=== PATIENT | female | born 1985 | race Caucasian/White ===

== ENCOUNTER → 2023-02-11 | Outpatient (CLI) | payer MEDICAID, SELFPAY ==
[2023-02-14 10:08] LABS: Chlamydia By Nucleic Acid AMP Negative (Negative); Gonococcus By Nucleic Acid AMP Negative (Negative)
[2023-02-19 00:06] LABS: HPV APTIMA, High Risk Positive (Negative); HPV Genotype 16, Aptima Negative (Negative); HPV Genotype 18,45 Aptima Negative (Negative)
== END | disposition home or self-care (01) ==
PROVIDERS: Visit Provider Obstetrics & Gynecology
DX: O26.899 Other specified pregnancy related conditions, unspecified trimester (principal); N89.8 Other specified noninflammatory disorders of vagina; O34.60 Maternal care for abnormality of vagina, unspecified trimester; Z3A.00 Weeks of gestation of pregnancy not specified; O99.891 Other specified diseases and conditions complicating pregnancy
CPT/HCPCS: 87070; 87077; 87086; 87205; 87491; 87591; 87624; 88175; G0145

== ENCOUNTER → 2023-02-20 | Outpatient (CLI) | payer MEDICAID, SELFPAY ==
[2023-02-20 13:41] LABS: Absolute Neutrophil Count 4.1 X10^3/uL (2.0-7.7); Basophil# 0.02 X10^3/uL; Basophil% 0.3 % (0-1); Eosinophil# 0.02 X10^3/uL; Eosinophils% 0.3 % (0-5); Hemoglobin 13.3 g/dL (12.0-15.0); Lymphocyte % 22.6 % (19-41); Mean Corp Hgb Conc 33.3 g/dL (32-36); Mean Corpuscular Hgb 31.2 pg (27.0-32.0); Mean Corpuscular Volume 93.9 fL (81-99); Mean Platelet Vol. 10.4 fl (6.2-12.0); Monocyte# 0.33 X10^3/uL; Monocyte% 5.7 % (0-10); NRBC Flagged by Analyzer 0 % (0-5); Neutrophil # 4.06 X10^3/uL (2.7-7.7); Neutrophil % 70.9 % (47-70); Platelet Count 181 K/mm3 (150-450); RBC Distribution Width CV 12.5 % (11.6-14.6); RBC Distribution Width SD 42.9 fl (35.1-43.9); Red Blood Count 4.26 M/mm3 (4.2-5.4); White Blood Count 5.7 K/mm3 (4.4-11.0)
--- NOTE | 2023-02-20 13:43 | US_ITS ---
INDICATION: dating EXAMINATION: Ultrasound US OB Transvaginal TECHNIQUE: Transabdominal and transvaginal ultrasound was performed. Grayscale, spectral waveform, and color flow Doppler evaluation of the adnexa. COMPARISON: LMP: 11/25/2022. FINDINGS: Uterus is 12.8 cm length. Gestational sac identified within the endometrial canal. Mean sac diameter 4.95 cm corresponds to estimated gestational age 10 weeks 4 days. Normal sac shape. Single pole identified within the gestational sac. [place]-rump length 3.8 cm corresponds to 10 weeks 3 days. cardiac activity demonstrated at 169 bpm. Yolk sac was visualized. Early placenta is forming anterior. The ovaries appear unremarkable with vascular flow demonstrated. No free fluid identified. US/Transvaginal w/Preg US IMPRESSION: Single live intrauterine estimated gestational age 10 weeks 3 days based on crown-rump length. Electronically Signed: Shirley Castro MD at 7:56 EDT ,
[2023-02-20 14:03] LABS: Glucose Challenge Gest 1H 50g 111 mg/dL (70-140)
[2023-02-20 14:28] LABS: NATERA MAILED SPECIMEN
[2023-02-20 14:52] LABS: HIV - WCH Non-Reactive (Nonreactive); Hepatitis B Surface Antigen Non-Reactive (Nonreactive); Hepatitis C Antibody Non-Reactive (Nonreactive); Rubella IgG Reactive (Nonreactive); Syphilis Antibodies Non-reactive
== END | disposition home or self-care (01) ==
LOC: US 13:36
PROVIDERS: Referring Provider Obstetrics & Gynecology; Visit Provider Obstetrics & Gynecology
DX: O26.20 Pregnancy care for patient with recurrent pregnancy loss, unspecified trimester (principal); Z3A.00 Weeks of gestation of pregnancy not specified
CPT/HCPCS: 36415; 76817; 82950; 85025; 86703; 86762; 86780; 86803; 86850; 86900; 86901; 87340

== ENCOUNTER → 2023-03-21 | Outpatient (CLI) | payer MEDICAID, SELFPAY | END | disposition home or self-care (01) | LOC: US 17:34 | PROVIDERS: Referring Provider Obstetrics & Gynecology; Visit Provider Obstetrics & Gynecology | DX: R35.0 Frequency of micturition (principal) ==

== ENCOUNTER → 2023-03-24 | Outpatient (CLI) | payer MEDICAID, SELFPAY ==
--- NOTE | 2023-03-24 14:14 | US_ITS ---
STUDY: SECOND AND THIRD TRIMESTER OBSTETRICAL ULTRASOUND REASON FOR EXAM: Female, 37 years old cervical length LMP: December 06, 2022. TECHNIQUE: Transabdominal and Transvaginal TECHNICAL QUALITY: Adequate. PRIOR ULTRASOUND: Comparison is made with prior study February 20, 2023. FINDINGS: There is a single intrauterine fetus. The fetus is in a breech presentation. There is demonstrated cardiac activity with a heart rate of 143 bpm. There is a normal amniotic fluid volume. The placenta is anterior in location and is not low lying. There are Grade 0 placental changes. The cervix measures 4.1 cm in length. The adnexal regions are not visualized. IMPRESSION: Cervical length measures 4.1 cm. Electronically Signed: Darrin Chopra MD at 15:41 EDT , STUDY: FIRST TRIMESTER OBSTETRICAL ULTRASOUND REASON FOR EXAM: Female, 37 years old cervical length LMP: December 06, 2022. TECHNIQUE: Transvaginal TECHNICAL QUALITY: Adequate. PRIOR ULTRASOUND: None. FINDINGS: The cervical length measures 4.1 cm. US/Transvaginal w/Preg US IMPRESSION: Cervical length measures 4.1 cm. Electronically Signed: Darrin Chopra MD at 15:42 EDT ,
== END | disposition home or self-care (01) ==
PROVIDERS: Referring Provider Obstetrics & Gynecology; Visit Provider Obstetrics & Gynecology
DX: O34.32 Maternal care for cervical incompetence, second trimester (principal); Z3A.00 Weeks of gestation of pregnancy not specified
CPT/HCPCS: 76815; 76817; 87070; 87086; 87088; 87205

== ENCOUNTER → 2023-07-02 | Outpatient (CLI) | payer MEDICAID, SELFPAY ==
[2023-07-02 14:01] LABS: Absolute Neutrophil Count 5.1 X10^3/uL (2.0-7.7); Basophil# 0.02 X10^3/uL; Basophil% 0.3 % (0-1); Eosinophil# 0.04 X10^3/uL; Eosinophils% 0.6 % (0-5); Hematocrit 34.2 % (37-47); Hemoglobin 11.4 g/dL (12.0-15.0); Lymphocyte % 16.8 % (19-41); Mean Corp Hgb Conc 33.3 g/dL (32-36); Mean Corpuscular Hgb 30.2 pg (27.0-32.0); Mean Corpuscular Volume 90.5 fL (81-99); Monocyte# 0.23 X10^3/uL; Monocyte% 3.5 % (0-10); NRBC Flagged by Analyzer 0 % (0-5); Neutrophil # 5.13 X10^3/uL (2.7-7.7); Neutrophil % 78.3 % (47-70); Platelet Count 174 K/mm3 (150-450); RBC Distribution Width CV 12.4 % (11.6-14.6); RBC Distribution Width SD 40.3 fl (35.1-43.9); Red Blood Count 3.78 M/mm3 (4.2-5.4); White Blood Count 6.6 K/mm3 (4.4-11.0)
[2023-07-02 14:09] LABS: Glucose Challenge Gest 1H 50g 135 mg/dL (70-140)
[2023-07-02 15:03] LABS: HIV - WCH Non-Reactive (Nonreactive); Syphilis Antibodies Non-reactive
== END | disposition home or self-care (01) ==
PROVIDERS: Referring Provider Obstetrics & Gynecology; Visit Provider Obstetrics & Gynecology
DX: O26.20 Pregnancy care for patient with recurrent pregnancy loss, unspecified trimester (principal); Z3A.00 Weeks of gestation of pregnancy not specified
CPT/HCPCS: 36415; 82950; 85025; 86703; 86780

== ENCOUNTER → 2023-07-09 | Outpatient (CLI) | payer MEDICAID, SELFPAY ==
--- NOTE | 2023-07-09 15:44 | US_ITS ---
STUDY: Ultrasound OB limited 1 or more fetus Ultrasound OB transvaginal REASON FOR EXAM: Female, 37 years old growth PRIOR ULTRASOUND: March 24, 2023. , February 20, 2023 TECHNIQUE: Transabdominal and endovaginal OB ultrasound grayscale color flow and M-mode Doppler. Cerclage wire discovered during] transvaginal exam. FINDINGS: There is a single intrauterine fetus. The fetus is in a cephalic presentation. There is demonstrated cardiac activity with a heart rate of 131 bpm. There is a normal amniotic fluid volume. The largest amniotic fluid pocket measures 7.6 cm. The amniotic fluid index (TIARA) is 18.4 cm. The placenta is anterior, grade 2 without evidence of abruption or previa. The cervix measures 2.0 cm in length and is closed with cerclage wire in place . BIOMETRY: BPD: 7.8 cm: 31 weeks, 3 days HC: 29.2 cm: 32 weeks, 2 days AC: 27.8 cm: 31 weeks, 6 days FL: 5.9 cm: 30 weeks, 6 days Age by LMP: 30 weeks, 5 days. HUNTER by LMP: September 12, 2023. age by current US: 31 weeks, 5 days. HUNTER by current US: September 05 2023. Estimated weight: 1800 grams, +/- 270 grams, 68% percentile. IMPRESSION: Single live intrauterine with cephalic presentation and normal heart rate. Cerclage wire in place with 2 cm closed cervix and normal TIARA. growth by biometry is concordant with clinical dating. weight as above Electronically Signed: Skyler Hernandez MD at 9:57 EST , STUDY: Ultrasound OB limited 1 or more fetus Ultrasound OB transvaginal REASON FOR EXAM: Female, 37 years old growth PRIOR ULTRASOUND: March 24, 2023. , February 20, 2023 TECHNIQUE: Transabdominal and endovaginal OB ultrasound grayscale color flow and M-mode Doppler. Cerclage wire discovered during] transvaginal exam. FINDINGS: There is a single intrauterine fetus. The fetus is in a cephalic presentation. There is demonstrated cardiac activity with a heart rate of 131 bpm. There is a normal amniotic fluid volume. The largest amniotic fluid pocket measures 7.6 cm. The amniotic fluid index (TIARA) is 18.4 cm. The placenta is anterior, grade 2 without evidence of abruption or previa. The cervix measures 2.0 cm in length and is closed with cerclage wire in place . BIOMETRY: BPD: 7.8 cm: 31 weeks, 3 days HC: 29.2 cm: 32 weeks, 2 days AC: 27.8 cm: 31 weeks, 6 days FL: 5.9 cm: 30 weeks, 6 days Age by LMP: 30 weeks, 5 days. HUNTER by LMP: September 12, 2023. age by current US: 31 weeks, 5 days. HUNTER by current US: September 05 2023. Estimated weight: 1800 grams, +/- 270 grams, 68% percentile. US/OB Limited With Biometrics IMPRESSION: Single live intrauterine with cephalic presentation and normal heart rate. Cerclage wire in place with 2 cm closed cervix and normal TIARA. growth by biometry is concordant with clinical dating. weight as above Electronically Signed: Skyler Hernandez MD at 9:58 EST Reading Location ID and State: [facility] / [place] Tel , Service support ,
== END | disposition home or self-care (01) ==
PROVIDERS: Referring Provider Obstetrics & Gynecology; Visit Provider Obstetrics & Gynecology
DX: O09.529 Supervision of elderly multigravida, unspecified trimester (principal); Z3A.00 Weeks of gestation of pregnancy not specified
CPT/HCPCS: 36415; 76816; 76817; 82951; 82952

== ENCOUNTER → 2023-07-09 | Outpatient (CLI) | payer MEDICAID, SELFPAY ==
[2023-07-09 10:59] LABS: Glucose GTT-Gestation. Fasting 103 mg/dL (<105)
[2023-07-09 12:48] LABS: Glucose GTT-Gestational 2 Hr 150 mg/dL (<165)
[2023-07-09 12:50] LABS: Glucose GTT-Gestational 1 Hr 183 mg/dL (<190)
[2023-07-09 13:57] LABS: Glucose GTT-Gestational 3 Hr 74 L (<145)
== END | disposition home or self-care (01) ==
LOC: LAB 09:58
PROVIDERS: Referring Provider Obstetrics & Gynecology; Visit Provider Obstetrics & Gynecology
DX: Z13.1 Encounter for screening for diabetes mellitus (principal)
CPT/HCPCS: 36415; 82951; 82952

== ENCOUNTER → 2023-12-03 | Outpatient (CLI) | payer MEDICAID, SELFPAY ==
[2023-12-03 17:40] LABS: Hepatitis C Antibody Non-Reactive (Nonreactive); Syphilis Antibodies Non-reactive
[2023-12-05 07:09] LABS: HSV 2 IgG < 0.91 index (0.00-0.90)
[2023-12-06 10:08] LABS: Chlamydia By Nucleic Acid AMP Negative (Negative); Gonococcus By Nucleic Acid AMP Negative (Negative)
== END | disposition home or self-care (01) ==
PROVIDERS: Referring Provider Obstetrics & Gynecology; Visit Provider Obstetrics & Gynecology
DX: Z11.3 Encounter for screening for infections with a predominantly sexual mode of transmission (principal); N76.0 Acute vaginitis
CPT/HCPCS: 36415; 86695; 86696; 86780; 86803; 87070; 87205; 87491; 87591